=== PATIENT | male | born 1965 | race Caucasian/White ===

== ENCOUNTER 2021-03-10 02:25 | Inpatient (IN) | payer BC ==
[2021-03-10] MEDS ORDERED: Sodium Chloride 0.9% 1,000 ML IV STA (02:45)
[2021-03-10] MEDS ORDERED: Ondansetron 4 MG/2 ML SDV IVPUSH ONE ×2 (02:45→03:41)
[2021-03-10 03:09] LABS: CARBON DIOXIDE,CO2 31.9 mmol/L (21.0-32.0); POTASSIUM,K 3.7 mmol/L (3.5-5.1)
--- NOTE | 2021-03-10 03:17 | EDM.PDOC ---
ED HPI GENERAL MEDICAL PROBLEM - General Chief Complaint: Gastrointestinal Problem Stated Complaint: ABDOMINAL PAIN Time Seen by Provider: 03/10/21 03:03 Source of Information: Reports: Patient History Limitations: Reports: No Limitations - History of Present Illness INITIAL COMMENTS - FREE TEXT/NARRATIVE: 55-year-old male with history of solitary kidney presents with 2 episodes of vomiting and diffuse, nonradiating, constant, cramping abdominal pain after eating chili and spaghetti for dinner. He denies fever, chills, diarrhea, chest pain, shortness of breath. ROS: A 10-point review of systems, other than pertinent positives and negatives as stated per HPI, is otherwise negative Past medical history: No additional pertinent history Past Surgical history: No additional pertinent history Social history: No additional pertinent history Family history: No additional pertinent history PHYSICAL EXAM General: AOx4, GCS = 15, mild distress HEENT: dry mucous membrane Neck: supple, no meningismus, no Kernig or Brudzinski Cardiac: S1S2 RRR Respiratory: CTAB, no crackles or rales, no wheezing Abdomen: Soft, mild diffuse tenderness, distended. No rebound or guarding, no pulsatile mass. Back: nontender Musculoskeletal: NVI distally, no deformity Neuro: No focal deficits, CN 2 - 12 WNL. abdomen Pain Score (Numeric/FACES): 8 - Related Data Allergies Allergy/AdvReac Type Severity Reaction Status Date / Time No Known Allergies Allergy Verified 03/10/21 02:38 Home Meds: Home Meds . [No Known Home Meds] 03/10/21 [History] Past Medical History - Past Surgical History GI Surgical History: Reports: Appendectomy Social & Family History - Family History Family Medical History: No Pertinent Family History - Tobacco Use Tobacco Use Status *Q: Never Tobacco User - Recreational Drug Use Recreational Drug Use: No ED ROS GENERAL - Review of Systems Review Of Systems: See Below (see dictation) ED EXAM, GI/ABD - Physical Exam Exam: See Below (see dictation) Course - Vital Signs Last Recorded V/S: Last Vital Signs Temp 96.9 F 03/10/21 02:32 Pulse 61 03/10/21 02:32 Resp 20 03/10/21 02:32 BP 128/86 03/10/21 02:32 Pulse Ox 97 03/10/21 02:32 - Orders/Labs/Meds Orders: Active Orders 24 hr Category Date Time Status Patient Status [ADT] Routine ADT 03/10/21 05:18 Ordered NG Tube Placement [CR] Stat Exams 03/10/21 05:19 Ordered CORONAVIRUS COVID-19 DAVE [MOLEC] Stat Lab 03/10/21 05:11 Ordered UA RFX KELSEY AND CULT IF INDIC [URIN] Stat Lab 03/10/21 05:13 Ordered Labs: Laboratory Tests 03/10/21 03/10/21 03/10/21 Range/Units 02:40 02:40 02:40 WBC 14.21 H (4.0-11.0) K/uL RBC 4.89 (4.50-5.90) M/uL Hgb 15.6 (13.0-17.0) g/dL Hct 44.5 (38.0-50.0) % MCV 91.0 (80.0-98.0) fL MCH 31.9 (27.0-32.0) pg MCHC 35.1 (31.0-37.0) g/dL RDW Std Deviation 42.9 (28.0-62.0) fl RDW Coeff of Daysi 13 (11.0-15.0) % Plt Count 249 (150-400) K/uL MPV 10.60 (7.40-12.00) fL Neut % (Auto) 80.5 H (48.0-80.0) % Lymph % (Auto) 13.2 L (16.0-40.0) % Burke % (Auto) 4.8 (0.0-15.0) % Eos % (Auto) 1.3 (0.0-7.0) % Baso % (Auto) 0.2 (0.0-1.5) % Neut # (Auto) 11.5 H (1.4-5.7) K/uL Lymph # (Auto) 1.9 (0.6-2.4) K/uL Burke # (Auto) 0.7 (0.0-0.8) K/uL Eos # (Auto) 0.2 (0.0-0.7) K/uL Baso # (Auto) 0.0 (0.0-0.1) K/uL Nucleated RBC % 0.0 /100WBC Nucleated RBCs # 0 K/uL Sodium 142 (136-148) mmol/L Potassium 3.7 (3.5-5.1) mmol/L Chloride 102 (98-107) mmol/L Carbon Dioxide 31.9 (21.0-32.0) mmol/L BUN 15 (7.0-18.0) mg/dL Creatinine 1.5 H (0.8-1.3) mg/dL Est Cr Clr Drug Dosing 65.46 mL/min Estimated GFR (MDRD) 48.8 ml/min Glucose 153 H (74-106) mg/dL Calcium 9.6 (8.5-10.1) mg/dL Total Bilirubin 0.6 (0.2-1.0) mg/dL AST 23 (15-37) IU/L ALT 30 (14-63) IU/L Alkaline Phosphatase 89 (46-116) U/L Total Protein 7.3 (6.4-8.2) g/dL Albumin 4.0 (3.4-5.0) g/dL Globulin 3.3 (2.6-4.0) g/dL Albumin/Globulin Ratio 1.2 (0.9-1.6) Lipase 179 (73-393) U/L Meds: Medications Discontinued Medications Generic Name Dose Route Start Last Admin Trade Name Freq PRN Reason Stop Dose Admin Al Hydroxide/Mg Hydroxide 15 0 ml 03/10/21 03:19 03/10/21 04:23 ml/ Metoclopramide HCl 5 mg/ PO 03/10/21 03:20 1 each Lidocaine HCl 5 ml ONETIME ONE Administration Dicyclomine HCl 10 mg 03/10/21 03:19 Dicyclomine 10 Mg Cap PO 03/10/21 03:20 ONETIME ONE Sodium Chloride 1,000 mls @ 999 mls/hr 03/10/21 02:45 03/10/21 02:53 Normal Saline IV 03/10/21 03:45 999 mls/hr NOW STA Administration Morphine Sulfate 4 mg 03/10/21 05:11 Morphine 4 Mg/Ml Syringe IVPUSH 03/10/21 05:12 ONETIME ONE Ondansetron HCl 4 mg 03/10/21 02:45 03/10/21 02:52 Ondansetron 4 Mg/2 Ml Sdv IVPUSH 03/10/21 02:46 4 mg ONETIME ONE Administration Ondansetron HCl 4 mg 03/10/21 03:41 03/10/21 03:46 Ondansetron 4 Mg/2 Ml Sdv IVPUSH 03/10/21 03:42 4 mg ONETIME ONE Administration - Re-Assessments/Exams Free Text/Narrative Re-Assessment/Exam: 03/10/21 05:14 NG tube placed, case discussed with Dr. Llanes, who agrees to admit patient. The hospitalist's documentation supersedes all other documentation on this patient with regard to any conflicts or discrepancies from this point forward. Any emergency conditions have been treated to the ability of the ED prior to admission. Departure - Departure Time of Disposition: 05:12 Disposition: Admitted As Inpatient 67 Condition: Good Clinical Impression: Small bowel obstruction, MAYA (acute kidney injury), Leukocytosis, Pulmonary nodule, Solitary kidney, Kidney stone - Discharge Information *PRESCRIPTION DRUG MONITORING PROGRAM REVIEWED*: Not Applicable *COPY OF PRESCRIPTION DRUG MONITORING REPORT IN PATIENT KENNY: Not Applicable Instructions: Acute Kidney Injury, Adult, Bowel Obstruction, [id number], Pulmonary Nodule Referrals: PCP,None [Primary Care Provider] - Forms: ED Department Discharge Critical Care Note - Critical Care Note Comments: CRITCAL CARE: The high probability of sudden, clinically significant deterioration in the patient's condition required the highest level of my preparedness to intervene urgently. The services I provided to this patient were to treat and/or prevent clinically significant deterioration. Services included the following: chart data review, reviewing nursing notes and/or old charts, documentation time, marine engineering consultant collaboration regarding findings and treatment options, medication orders and management, direct patient care, vital sign assessments and ordering, interpreting and reviewing diagnostic studies/lab tests. Aggregate critical care time includes only time during which I was engaged in work directly related to the patient's care, as described above, whether at the bedside or elsewhere in the Emergency Department. It did not include time spent performing other reported procedures or the services of residents, students, nurses or physician assistants. Frequent interventions and/or frequent repeat evaluations were required as well as counseling and coordination of care regarding prognosis, treatments, and discussions with patient, staff and consultants. Critical Care (excluding other procedures): 40 minutes Sepsis Event Note (ED) - Evaluation Sepsis Screening Result: No Definite Risk - Focused Exam Vital Signs: Vital Signs Temp Pulse Resp BP Pulse Ox 03/10/21 02:32 96.9 F 61 20 128/86 97 - My Orders Last 24 Hours: My Active Orders 03/10/21 05:11 CORONAVIRUS COVID-19 DAVE [MOLEC] Stat 03/10/21 05:13 UA RFX KELSEY AND CULT IF INDIC [URIN] Stat 03/10/21 05:18 Patient Status [ADT] Routine 03/10/21 05:19 NG Tube Placement [CR] Stat - Assessment/Plan Last 24 Hours: My Active Orders 03/10/21 05:11 CORONAVIRUS COVID-19 DAVE [MOLEC] Stat 03/10/21 05:13 UA RFX KELSEY AND CULT IF INDIC [URIN] Stat 03/10/21 05:18 Patient Status [ADT] Routine 03/10/21 05:19 NG Tube Placement [CR] Stat
[2021-03-10] MEDS ORDERED: Dicyclomine 10 MG Cap PO ONE (03:19)
[2021-03-10] MEDS ORDERED: Alum Hydrox/Mag Hydrox/Simeth 15 ML, Metoclopramide 5 MG, Lidocaine 2% 5 ML PO ONE ×3 (03:19)
--- NOTE | 2021-03-10 05:04 | CT ---
INDICATION: Lower abdominal pain with emesis TECHNIQUE: CT abdomen and pelvis without contrast. COMPARISON: None FINDINGS: Lower chest: 6 mm pulmonary nodule right lower lobe image 11 series 201. Linear atelectasis or scarring at both lung bases. Liver: Unremarkable. Spleen: Unremarkable. Pancreas: Unremarkable. Gallbladder and bile ducts: Unremarkable. Adrenal glands: Unremarkable. Kidneys: Solitary left kidney with nonobstructive renal stones. GI tract: The stomach is moderately distended with food. Multiple loops of dilated small bowel measuring up to 3.4 cm in diameter. No definite transition point. No free air or pneumatosis. No colonic dilatation. Moderate amount of feces throughout the colon. The appendix is not seen. Vascular structures: Unremarkable. Lymph nodes: Unremarkable. Miscellaneous: Unremarkable. No free air or significant free fluid. Pelvic Organs: Unremarkable. Bones: Unremarkable for age. IMPRESSION: Small-bowel obstruction. No definite transition point identified. Moderate distention of the stomach with food. Moderate amount of feces throughout the colon. Right lower lobe pulmonary nodule. Recommend chest CT for complete evaluation of the lungs. Based on those results, recommend follow-up per Fleischner society guidelines. Solitary left kidney with nonobstructive renal stones. Please note that all CT scans at this facility use dose modulation, iterative reconstruction, and/or weight-based dosing when appropriate to reduce radiation dose to as low as reasonably achievable. Dictated by Tami Sparrow MD @ 03/10/2021 5:02:43 AM (Electronically Signed)
[2021-03-10] MEDS ORDERED: Morphine 4 MG/ML Syringe IVPUSH ONE (05:11)
[2021-03-10] MEDS ORDERED: Benzocaine 20% Topical Spray UD MUCMEM ONE (05:20)
--- NOTE | 2021-03-10 07:12 | CR ---
INDICATION: Nasogastric tube placement. COMPARISON: CT abdomen and pelvis March 10, 2021. TECHNIQUE: Portable KUB. FINDINGS: Nasogastric tube identified in the mid body of the stomach. IMPRESSION: NG tube in the stomach. Dictated by Landry Tom MD @ 03/10/2021 7:11:19 AM (Electronically Signed)
[2021-03-10] MEDS ORDERED: Sodium Chloride 0.9% 2.5 ML Syringe FLUSH PRN (08:13)
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
[2021-03-10] MEDS ORDERED: Pantoprazole 40 MG Vial IV SCH (08:15)
[2021-03-10] MEDS ORDERED: Ondansetron 4 MG/2 ML SDV IVPUSH PRN (08:30)
[2021-03-10] MEDS: Lactated Ringers 1,000 ML IV SCH ×2 (08:57→17:06)
[2021-03-10] MEDS ORDERED: Benzocaine/Cetylpyridinium/Menthol Lozenge MUCMEM PRN (09:00)
[2021-03-10] MEDS ORDERED: Phenol 1.4% Oral Spray 177 ML Bottle MUCMEM PRN (09:00)
[2021-03-10] MEDS: Pantoprazole 40 MG in Sodium Chloride 0.9% 10 ML IV SCH (09:00)
--- NOTE | 2021-03-10 11:22 | PCM.CONS ---
H&P History of Present Illness - General Date of Service: 03/10/21 Admit Problem/Dx: Admission Diagnosis/Problem Admission Diagnosis/Problem Small bowel obstruction Source of Information: Patient History Limitations: Reports: No Limitations - History of Present Illness Initial Comments - Free Text/Narative: Patient is a 55-year-old male who presents with intractable nausea vomiting abdominal pain. He states that intermittently he will have episodes of sharp crampy pain that are short-lived. He will sometimes bloated with this. Last evening he had a normal bowel movement and was passing gas. Around 8:00 last night he developed abdominal bloating, nausea, vomiting, and worsening abdominal pain. This did not resolve with time. He denies any family history of colon cancer or inflammatory bowel diseases. He denies any melena or hematochezia. 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 He states he had large liver lacerations at the time as well. He underwent an upper arm ORIF as well. This was when he was 19 years old. He has never had symptoms like he developed last evening. Is admitted to the hospital. He was found to have a slight leukocytosis. CT scan of the abdomen pelvis showed dilated small bowel throughout with no evidence of a transition point suggesting a small bowel obstruction. An NG was placed in the emergency room. He's had 100ml of orange appearing output since. He states that his abdomen feels less bloated and tender. Overall he is feeling better. When he came to see him this afternoon he just passed some gas. abdomen Pain Score (Numeric/FACES): 8 - Related Data Allergies/Adverse Reactions: Allergies Allergy/AdvReac Type Severity Reaction Status Date / Time No Known Allergies Allergy Verified 03/10/21 09:03 Home Medications: Home Meds . [No Known Home Meds] 03/10/21 [History] Past Medical History - Past Surgical History GI Surgical History: Reports: Appendectomy Social & Family History - Family History Family Medical History: No Pertinent Family History HEENT: Reports: None Cardiac: Reports: None Respiratory: Reports: None GI: Reports: None : Reports: None OBGYN: Reports: None Musculoskeletal: Reports: None Neurological: Reports: None Psychiatric: Reports: None Endocrine/Metabolic: Reports: None Hematologic: Reports: None Immunologic: Reports: None Dermatologic: Reports: None Oncologic: Reports: None - Tobacco Use Tobacco Use Status *Q: Never Tobacco User Second Hand Smoke Exposure: No - Caffeine Use Caffeine Use: Reports: Coffee, Tea - Recreational Drug Use Recreational Drug Use: No H&P Review of Systems - Review of Systems: Review Of Systems: See Below Exam - Exam Exam: See Below - Vital Signs Vital Signs: Last Vital Signs Temp 36.3 C 03/10/21 08:13 Pulse 64 03/10/21 08:13 Resp 17 03/10/21 08:13 BP 120/79 03/10/21 08:13 Pulse Ox 96 03/10/21 08:13 Weight: 89.1 kg - Exam Quality Assessment: Supplemental Oxygen General: Alert, Oriented HEENT: Conjunctiva Clear, Mucosa Moist & [place], Posterior Pharynx Clear Neck: Supple, Trachea Midline Lungs: Clear to Auscultation, Normal Respiratory Effort Cardiovascular: Regular Rate, Regular Rhythm GI/Abdominal Exam: Normal Bowel Sounds, Soft, Non-Tender, No Distention, No Mass, Other (well healed large midline incision ) - Patient Data Lab Results Last 24 hrs: Laboratory Results - last 24 hr 03/10/21 03/10/21 03/10/21 Range/Units 02:40 02:40 02:40 WBC 14.21 H (4.0-11.0) K/uL RBC 4.89 (4.50-5.90) M/uL Hgb 15.6 (13.0-17.0) g/dL Hct 44.5 (38.0-50.0) % MCV 91.0 (80.0-98.0) fL MCH 31.9 (27.0-32.0) pg MCHC 35.1 (31.0-37.0) g/dL RDW Std Deviation 42.9 (28.0-62.0) fl RDW Coeff of Daysi 13 (11.0-15.0) % Plt Count 249 (150-400) K/uL MPV 10.60 (7.40-12.00) fL Neut % (Auto) 80.5 H (48.0-80.0) % Lymph % (Auto) 13.2 L (16.0-40.0) % [place] % (Auto) 4.8 (0.0-15.0) % Eos % (Auto) 1.3 (0.0-7.0) % Baso % (Auto) 0.2 (0.0-1.5) % Neut # (Auto) 11.5 H (1.4-5.7) K/uL Lymph # (Auto) 1.9 (0.6-2.4) K/uL [place] # (Auto) 0.7 (0.0-0.8) K/uL Eos # (Auto) 0.2 (0.0-0.7) K/uL Baso # (Auto) 0.0 (0.0-0.1) K/uL Nucleated RBC % 0.0 /100WBC Nucleated RBCs # 0 K/uL Sodium 142 (136-148) mmol/L Potassium 3.7 (3.5-5.1) mmol/L Chloride 102 (98-107) mmol/L Carbon Dioxide 31.9 (21.0-32.0) mmol/L BUN 15 (7.0-18.0) mg/dL Creatinine 1.5 H (0.8-1.3) mg/dL Est Cr Clr Drug Dosing 65.46 mL/min Estimated GFR (MDRD) 48.8 ml/min Glucose 153 H (74-106) mg/dL Calcium 9.6 (8.5-10.1) mg/dL Total Bilirubin 0.6 (0.2-1.0) mg/dL AST 23 (15-37) IU/L ALT 30 (14-63) IU/L Alkaline Phosphatase 89 (46-116) U/L Total Protein 7.3 (6.4-8.2) g/dL Albumin 4.0 (3.4-5.0) g/dL Globulin 3.3 (2.6-4.0) g/dL Albumin/Globulin Ratio 1.2 (0.9-1.6) Lipase 179 (73-393) U/L SARS-CoV-2 RNA (DAVE) (NEGATIVE) 03/10/21 Range/Units 05:15 WBC (4.0-11.0) K/uL RBC (4.50-5.90) M/uL Hgb (13.0-17.0) g/dL Hct (38.0-50.0) % MCV (80.0-98.0) fL MCH (27.0-32.0) pg MCHC (31.0-37.0) g/dL RDW Std Deviation (28.0-62.0) fl RDW Coeff of Daysi (11.0-15.0) % Plt Count (150-400) K/uL MPV (7.40-12.00) fL Neut % (Auto) (48.0-80.0) % Lymph % (Auto) (16.0-40.0) % [place] % (Auto) (0.0-15.0) % Eos % (Auto) (0.0-7.0) % Baso % (Auto) (0.0-1.5) % Neut # (Auto) (1.4-5.7) K/uL Lymph # (Auto) (0.6-2.4) K/uL [place] # (Auto) (0.0-0.8) K/uL Eos # (Auto) (0.0-0.7) K/uL Baso # (Auto) (0.0-0.1) K/uL Nucleated RBC % /100WBC Nucleated RBCs # K/uL Sodium (136-148) mmol/L Potassium (3.5-5.1) mmol/L Chloride (98-107) mmol/L Carbon Dioxide (21.0-32.0) mmol/L BUN (7.0-18.0) mg/dL Creatinine (0.8-1.3) mg/dL Est Cr Clr Drug Dosing mL/min Estimated GFR (MDRD) ml/min Glucose (74-106) mg/dL Calcium (8.5-10.1) mg/dL Total Bilirubin (0.2-1.0) mg/dL AST (15-37) IU/L ALT (14-63) IU/L Alkaline Phosphatase (46-116) U/L Total Protein (6.4-8.2) g/dL Albumin (3.4-5.0) g/dL Globulin (2.6-4.0) g/dL Albumin/Globulin Ratio (0.9-1.6) Lipase (73-393) U/L SARS-CoV-2 RNA (DAVE) NEGATIVE (NEGATIVE) Result Diagrams: 03/10/21 02:40 03/10/21 02:40 Sepsis Event Note - Evaluation Sepsis Screening Result: No Definite Risk - Focused Exam Vital Signs: Vital Signs Temp Pulse Resp BP Pulse Ox 03/10/21 08:13 36.3 C 64 17 120/79 96 03/10/21 07:17 68 16 118/76 96 03/10/21 05:24 36.1 C 60 16 113/73 95 03/10/21 02:32 36.1 C 61 20 128/86 97 Consult PN Assessment/Plan (1) Small bowel obstruction SNOMED Code(s): 986579701 Code(s): K56.609 - UNSP INTESTNL OBST, UNSP TO PARTIAL VERSUS COMPLETE OBST Current Visit: Yes Problem List Initiated/Reviewed/Updated: Yes Plan: The patient and I discussed the pathology of small bowel obstructions. His previous exploratory laparotomy and trauma likely caused some intra-abdominal adhesions. These have likely causes some minor issues in the past but cause his first real episode of SBO today. There is no transition point noted on the abdominal CT scan. I agree with bowel rest with the NG tube in place to low intermittent suction. It hasn't put out much since its placement which suggests that this is likely a partial small bowel obstruction. He started passing gas this afternoon and has great bowel sounds. Likely after 24 hours of rest we can clamp the tube and see how he does. We'll continue to follow along. No need for surgery at this point in time.
[2021-03-11] MEDS: Lactated Ringers 1,000 ML IV SCH ×3 (02:36→19:26)
[2021-03-11 06:35] LABS: BLOOD UREA NITROGEN,BUN 10 mg/dL (7.0-18.0); CARBON DIOXIDE,CO2 28.7 mmol/L (21.0-32.0); CHLORIDE,CL 109 mmol/L (98-107); GLUCOSE RANDOM 99 mg/dL (74-106); POTASSIUM,K 3.7 mmol/L (3.5-5.1); SODIUM,NA 143 mmol/L (136-148)
[2021-03-11] MEDS: Pantoprazole 40 MG in Sodium Chloride 0.9% 10 ML IV SCH (08:31)
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
--- NOTE | 2021-03-11 16:18 | PCM.CONSN ---
- General Info Date of Service: 03/11/21 Subjective Update: Patient passing gas. NG output 350ml over the last 24 hours. No BM. Abdominal pain well controlled. - Review of Systems General: Reports: No Symptoms HEENT: Reports: No Symptoms Pulmonary: Reports: No Symptoms Cardiovascular: Reports: No Symptoms Gastrointestinal: Reports: No Symptoms Genitourinary: Reports: No Symptoms - Patient Data Vitals - Most Recent: Last Vital Signs Temp 36.8 C 03/11/21 11:51 Pulse 52 L 03/11/21 11:51 Resp 16 03/11/21 11:51 BP 123/64 03/11/21 11:51 Pulse Ox 94 L 03/11/21 11:51 Weight - Most Recent: 89.1 kg I&O - Last 24 Hours: Intake & Output 03/11/21 03/11/21 03/11/21 06:59 14:59 22:59 Intake Total 0 Output Total 910 Balance -910 Lab Results Last 24 Hours: Laboratory Results - last 24 hr 03/11/21 03/11/21 Range/Units 05:45 05:45 WBC 5.36 (4.0-11.0) K/uL RBC 4.49 L (4.50-5.90) M/uL Hgb 13.9 (13.0-17.0) g/dL Hct 41.3 (38.0-50.0) % MCV 92.0 (80.0-98.0) fL MCH 31.0 (27.0-32.0) pg MCHC 33.7 (31.0-37.0) g/dL RDW Std Deviation 44.4 (28.0-62.0) fl RDW Coeff of Daysi 13 (11.0-15.0) % Plt Count 193 (150-400) K/uL MPV 10.20 (7.40-12.00) fL Neut % (Auto) 52.3 (48.0-80.0) % Lymph % (Auto) 33.4 (16.0-40.0) % [place] % (Auto) 9.0 (0.0-15.0) % Eos % (Auto) 4.7 (0.0-7.0) % Baso % (Auto) 0.6 (0.0-1.5) % Neut # (Auto) 2.8 (1.4-5.7) K/uL Lymph # (Auto) 1.8 (0.6-2.4) K/uL [place] # (Auto) 0.5 (0.0-0.8) K/uL Eos # (Auto) 0.3 (0.0-0.7) K/uL Baso # (Auto) 0.0 (0.0-0.1) K/uL Nucleated RBC % 0.0 /100WBC Nucleated RBCs # 0 K/uL Sodium 143 (136-148) mmol/L Potassium 3.7 (3.5-5.1) mmol/L Chloride 109 H (98-107) mmol/L Carbon Dioxide 28.7 (21.0-32.0) mmol/L BUN 10 (7.0-18.0) mg/dL Creatinine 1.2 (0.8-1.3) mg/dL Est Cr Clr Drug Dosing 81.82 mL/min Estimated GFR (MDRD) > 60.0 ml/min Glucose 99 (74-106) mg/dL Calcium 7.8 L (8.5-10.1) mg/dL Phosphorus 3.6 (2.6-4.7) mg/dL Magnesium 1.8 (1.8-2.4) mg/dL Med Orders - Current: Current Medications Benzocaine/Menthol (Benzocaine/Cetylpyridinium/Menthol Lozenge) 1 lozenge MUCMEM Q2H PRN PRN Reason: Sore Throat Lactated Ringer's (Ringers, Lactated) 1,000 mls @ 125 mls/hr IV Q8H [facility] Last Admin: 03/11/21 11:12 Dose: 125 mls/hr Documented by: Pantoprazole Sodium 40 mg/ (Sodium Chloride) 10 mls @ 300 mls/hr IV Q24H [facility] Last Admin: 03/11/21 08:31 Dose: 300 mls/hr Documented by: Ondansetron HCl (Ondansetron 4 Mg/2 Ml Sdv) 4 mg IVPUSH Q4H PRN PRN Reason: Nausea Phenol/Menthol (Phenol 1.4% Oral [place] 177 Ml Bottle) 0 ml MUCMEM Q2H PRN PRN Reason: sore throat, NG tube Sodium Chloride (Sodium Chloride 0.9% 2.5 Ml Syringe) 2.5 ml FLUSH ASDIRECTED PRN PRN Reason: Keep Vein Open Discontinued Medications Benzocaine (Benzocaine 20% Topical [place] Ud) 2 each MUCMEM ONETIME ONE Stop: 03/10/21 05:21 Last Admin: 03/10/21 06:51 Dose: Not Given Documented by: Al Hydroxide/Mg Hydroxide 15 ml/ Metoclopramide HCl 5 mg/Lidocaine HCl 5 ml 0 ml PO ONETIME ONE Stop: 03/10/21 03:20 Last Admin: 03/10/21 04:23 Dose: 1 each Documented by: Dicyclomine HCl (Dicyclomine 10 Mg Cap) 10 mg PO ONETIME ONE Stop: 03/10/21 03:20 Last Admin: 03/10/21 05:28 Dose: Not Given Documented by: Sodium Chloride (Normal Saline) 1,000 mls @ 999 mls/hr IV NOW STA Stop: 03/10/21 03:45 Last Admin: 03/10/21 02:53 Dose: 999 mls/hr Documented by: Morphine Sulfate (Morphine 4 Mg/Ml Syringe) 4 mg IVPUSH ONETIME ONE Stop: 03/10/21 05:12 Last Admin: 03/10/21 05:19 Dose: 4 mg Documented by: Ondansetron HCl (Ondansetron 4 Mg/2 Ml Sdv) 4 mg IVPUSH ONETIME ONE Stop: 03/10/21 02:46 Last Admin: 03/10/21 02:52 Dose: 4 mg Documented by: Ondansetron HCl (Ondansetron 4 Mg/2 Ml Sdv) 4 mg IVPUSH ONETIME ONE Stop: 03/10/21 03:42 Last Admin: 03/10/21 03:46 Dose: 4 mg Documented by: - Exam General: Alert, Oriented, Cooperative Lungs: Normal Respiratory Effort Cardiovascular: Regular Rate GI/Abdominal Exam: Soft, Non-Tender, No Distention, No Mass, Other (NG with clear-orange appearing output. ) Sepsis Event Note - Evaluation Sepsis Screening Result: No Definite Risk - Focused Exam Vital Signs: Vital Signs Temp Pulse Resp BP Pulse Ox 03/11/21 11:51 36.8 C 52 L 16 123/64 94 L 03/11/21 08:00 36.4 C 93 18 110/78 93 L Consult PN Assessment/Plan (1) Small bowel obstruction SNOMED Code(s): 901026543 Code(s): K56.609 - UNSP INTESTNL OBST, UNSP TO PARTIAL VERSUS COMPLETE OBST Current Visit: Yes Problem List Initiated/Reviewed/Updated: Yes Plan: Ok to clamp NG tube and advance diet to ice chips and sips of clears. If tolerating remove NG after 2 hours. Ok to advance diet slowly over next couple days. Will sign off at this time as patient appears to be improving. Can follow up for screening colonoscopy. Call with any questions or concerns.
[2021-03-12] MEDS: Lactated Ringers 1,000 ML IV SCH (02:44)
[2021-03-12 06:54] LABS: BLOOD UREA NITROGEN,BUN 11 mg/dL (7.0-18.0); CARBON DIOXIDE,CO2 28.7 mmol/L (21.0-32.0); CHLORIDE,CL 108 mmol/L (98-107); GLUCOSE RANDOM 92 mg/dL (74-106); POTASSIUM,K 3.7 mmol/L (3.5-5.1); SODIUM,NA 142 mmol/L (136-148)
[2021-03-12] MEDS ORDERED: Polyethylene Glycol 3350 Powder 17 GM Packet PO ONE (08:25)
[2021-03-12] MEDS: Pantoprazole 40 MG in Sodium Chloride 0.9% 10 ML IV SCH (09:35)
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
== END 2021-03-12 09:15 | disposition home or self-care (01) | DRG 247 ==
LOC: MW.ED 02:25 → MW.MS 05:18
PROVIDERS: ADMIT Internal Medicine; ATTEND Internal Medicine
PROC: 0D9670Z Drainage of Stomach with Drainage Device, Via Natural or Artificial Opening (ICD-10-PCS; principal; 2021-03-10)
DX: K56.609 Unspecified intestinal obstruction, unspecified as to partial versus complete obstruction (principal); N17.9 Acute kidney failure, unspecified; R91.1 Solitary pulmonary nodule; N20.0 Calculus of kidney; Z90.81 Acquired absence of spleen; Z90.5 Acquired absence of kidney; Z87.828 Personal history of other (healed) physical injury and trauma; Z90.49 Acquired absence of other specified parts of digestive tract; Z87.891 Personal history of nicotine dependence
CPT/HCPCS: 36415; 43752; 74176; 74176-26; 80048; 80053; 81003; 83690; 83735; 84100; 85025; 96374; 96376; 99285-25; A9270-GY; C9113; J2270; J2405; J7030; J7120; U0002

== ENCOUNTER 2021-04-08 08:24 | Day surgery (SDC) | payer BC ==
[~2021-04-08 08:24] MED LIST: Lactated Ringers 1,000 ML IV SCH; Sodium Chloride 0.9% 10 ML SDV IV PRN; Sodium Chloride 0.9% 10 ML Syringe FLUSH PRN; Sodium Chloride 0.9% 2.5 ML Syringe FLUSH PRN
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
[2021-04-08] MEDS ORDERED: Propofol 200 MG/20 ML SDV ONE (09:37)
[2021-04-08] MEDS ORDERED: fentaNYL 100 MCG/2 ML SDV ONE (09:37)
[2021-04-08] MEDS ORDERED: ePHEDrine 50 MG/ML SDV ONE (09:59)
--- NOTE | 2021-04-08 10:26 | PCM.OPNOTE ---
- General Post-Op/Procedure Note Date of Surgery/Procedure: 04/08/21 Operative Procedure(s): Screening colonoscopy Findings: Normal colonoscopy Pre Op Diagnosis: Screening colonoscopy Post-Op Diagnosis: same Anesthesia Technique: MAC Primary Surgeon: Elizabeth Espinoza Condition: Good
--- NOTE | 2021-04-08 11:36 | PCM.POSTAN ---
POST ANESTHESIA ASSESSMENT - MENTAL STATUS Mental Status: Alert, Oriented - VITAL SIGNS Vital Signs: Last Vital Signs Temp 97.0 F 04/08/21 10:35 Pulse 56 L 04/08/21 10:35 Resp 14 04/08/21 10:35 BP 102/52 L 04/08/21 10:35 Pulse Ox 98 04/08/21 10:35 - RESPIRATORY Respiratory Status: Respiratory Rate WNL, Airway Patent, O2 Saturation Stable - CARDIOVASCULAR CV Status: Pulse Rate WNL, Blood Pressure Stable - GASTROINTESTINAL GI Status: No Symptoms - POST OP HYDRATION Hydration Status: Adequate & Stable
--- NOTE | 2021-04-08 11:37 | PCM48HPAN ---
Post Anesthesia Note - EVALUATION WITHIN 48HRS OF ANESTHETIC Vital Signs in Normal Range: Yes Patient Participated in Evaluation: Yes Respiratory Function Stable: Yes Airway Patent: Yes Cardiovascular Function Stable: Yes Hydration Status Stable: Yes Pain Control Satisfactory: Yes Nausea and Vomiting Control Satisfactory: Yes Mental Status Recovered: Yes Vital Signs: Last Vital Signs Temp 97.0 F 04/08/21 10:35 Pulse 56 L 04/08/21 10:35 Resp 14 04/08/21 10:35 BP 102/52 L 04/08/21 10:35 Pulse Ox 98 04/08/21 10:35
--- NOTE | 2021-04-08 13:56 | OR ---
SURGEON: ELIZABETH ESPINOZA MD DATE OF PROCEDURE: 04/08/2021 PREOPERATIVE DIAGNOSIS: Screening colonoscopy. POSTOPERATIVE DIAGNOSIS: Screening colonoscopy. PROCEDURE PERFORMED: Screening colonoscopy. PRIMARY SURGEON: Elizabeth Espinoza MD ANESTHESIA: MAC. INSTRUMENT USED: Olympus colonoscope. EXTENT OF THE EXAM: To the cecum. PREPARATION: Good. LIMITATIONS: None. INDICATIONS FOR EXAMINATION: The patient is a 56-year-old male who was recently admitted to the hospital with a small bowel obstruction. He has a history of abdominal surgery. His symptoms resolved with conservative management. The patient had not had a colonoscopy. The decision was made to proceed with a screening colonoscopy. The patient and I discussed the procedure, expected perioperative course, and the risks. He verbalized understanding and wishes to proceed. PROCEDURE IN DETAIL: The patient was brought in to the endoscopy suite and placed in a left lateral decubitus position. A time-out was completed verifying the patient's name, age, date of , allergies, and procedure to be performed. Monitored anesthesia care was induced and continuous oxygen was provided via nasal cannula throughout the procedure. After adequate sedation was achieved, a digital rectal exam was performed. This exam was within normal limits. A well-lubricated colonoscope was inserted into the rectum and advanced under direct visualization to the level of the cecum. The cecum was identified by both visual and anatomic landmarks. A photograph was taken of the cecal cap, however, I was unable to retroflex the scope within the cecum due to looping of the scope more proximally. The scope was fully withdrawn while examining the color, texture, anatomy, and integrity of the mucosa from the cecum to the anal canal. The findings were consistent with normal colonic mucosa. The scope was brought into the rectum and retroflexed to allow visualization of the anal canal opening. This appeared normal and a photograph was taken. The scope was then straightened out and fully withdrawn. The cecum to anus time was 12 minutes. The patient tolerated the procedure well and was transferred to the PACU in stable condition. ENDOSCOPIC DIAGNOSIS: Normal colonoscopy. RECOMMENDATION: Follow up in clinic in 10 years for repeat colonoscopy. CHRISTIAN MONTEIRO /[id number]
== END 2021-04-08 10:57 | disposition home or self-care (01) ==
LOC: MW.SDS 08:24
PROVIDERS: ATTEND Surgery
DX: Z12.11 Encounter for screening for malignant neoplasm of colon (principal); N20.0 Calculus of kidney; R91.1 Solitary pulmonary nodule; Z98.890 Other specified postprocedural states; Z79.899 Other long term (current) drug therapy; Z87.891 Personal history of nicotine dependence
CPT/HCPCS: 45378; J2704; J3010; J7120; 00812